=== PATIENT | female | born 1955 | race Caucasian/White ===

== ENCOUNTER 2017-04-03 02:48 | Emergency (ER) | payer MEDICARE, OTHER ==
[2017-04-03] MEDS ORDERED: NORMAL SALINE 1000 ML 1,000 ML IV ONE ×2 (03:50→07:17)
--- NOTE | 2017-04-03 03:55 | ER Document Report ---
ED General - General Chief Complaint: Ankle Pain Stated Complaint: FALL/LEG PAIN Time Seen by Provider: 04/03/17 03:39 Notes: Patient is a 61-year-old female who comes emergency department for chief complaint of right ankle pain, she states that she almost passed out, she got lightheaded and stumbled forward, she states this caused her to fall down steps and she caught her right ankle in between 1 of the rungs. She states that her blood pressure has been running low for the past few weeks, she states that she has seen her primary care provider and they were supposed to refer her to her drug and alcohol counselor but this has not happened yet. Patient states she does have not have any idea why her blood pressures been running low, she does not take any antihypertensive medications, she is on baclofen and oxycodone 15 mg but she states these are not new. She denies chest pain, head injury or headache, back pain, she states she hurts over both of her collarbones. Past medical history of lumbar fusion as the reason for her chronic pain management, CAD with NH but no reported CHF, hyperlipidemia, GERD, TIA. TRAVEL OUTSIDE OF THE [place] IN LAST 30 DAYS: No - Related Data Allergies/Adverse Reactions: Sulfa (Sulfonamide Antibiotics) Allergy (Intermediate, Verified 02/02/11 11:10) N&V Past Medical History - General Information source: Patient - Social History Smoking Status: Never Smoker Frequency of alcohol use: None Drug Abuse: None Lives with: Family Family History: CAD, CVA, DM, Hyperlipidemia, Hypertension, Malignancy, Thyroid Disfunction Patient has suicidal ideation: No Patient has homicidal ideation: No - Past Medical History Cardiac Medical History: Reports: Hx Hypertension - meds X 15 years Denies: Hx Coronary Artery Disease, Hx Heart Attack Pulmonary Medical History: Reports: Hx Bronchitis, Hx COPD, Hx Pneumonia - Sep 2009 Denies: Hx Asthma Neurological Medical History: Denies: Hx Cerebrovascular Accident, Hx Seizures Endocrine Medical History: Reports: Hx Diabetes Mellitus Type 2 Renal/ Medical History: Reports: Hx Kidney Stones. Denies: Hx Peritoneal Dialysis GI Medical History: Reports: Hx Gastroesophageal Reflux Disease, Hx Irritable Bowel, Hx Colonoscopy, Hx Endoscopy Musculoskeltal Medical History: Reports Hx Arthritis - DJD, Reports Hx Muscle Weakness, Reports Hx Musculoskeletal Deformity, Reports Hx Musculoskeletal Trauma Skin Medical History: Denies Hx MRSA Psychiatric Medical History: Reports: Hx Anxiety, Hx Attention Deficit Hyperactivity Disorder, Hx Depression Traumatic Medical History: Reports: Hx Fractures Infectious Medical History: Past Surgical History: Reports: Hx Appendectomy, Hx Breast Surgery, Hx Cholecystectomy, Hx Hysterectomy, Hx Oral Surgery, Hx Tonsillectomy, Hx Tubal Ligation. Denies: Hx Pacemaker - Immunizations Immunizations up to date: No Hx Diphtheria, Pertussis, Tetanus Vaccination: No Review of Systems - Review of Systems Constitutional: No symptoms reported EENT: No symptoms reported Cardiovascular: See HPI Respiratory: No symptoms reported Gastrointestinal: No symptoms reported Genitourinary: No symptoms reported Female Genitourinary: No symptoms reported Musculoskeletal: No symptoms reported Skin: No symptoms reported Hematologic/Lymphatic: No symptoms reported Neurological/Psychological: See HPI Physical Exam - Vital signs Vitals: Temp Pulse Resp BP Pulse Ox 97.5 F 105 H 16 91/59 L 92 04/03/17 02:52 04/03/17 02:52 04/03/17 02:52 04/03/17 02:52 04/03/17 02:52 Interpretation: Normal - General General appearance: Appears well, Alert In distress: None - HEENT Head: Normocephalic, Atraumatic Eyes: Normal Pupils: PERRL - Respiratory Respiratory status: No respiratory distress Chest status: Nontender Breath sounds: Normal Chest palpation: Normal - Cardiovascular Rhythm: Regular. No: Tachycardia Heart sounds: Normal auscultation, S1 appreciated, S2 appreciated Murmur: No - Abdominal Inspection: Normal Distension: No distension Bowel sounds: Normal Tenderness: Nontender. No: Tender, Guarding Organomegaly: No organomegaly - Back Back: Normal, Nontender - Extremities General upper extremity: Normal inspection, Nontender, Normal color, Normal ROM , Normal temperature General lower extremity: Other - Neurological Neuro grossly intact: Yes Cognition: Normal Orientation: AAOx4 Gianna Coma Scale Eye Opening: Spontaneous [place] Coma Scale Verbal: Oriented [place] Coma Scale Motor: Obeys Commands [place] Coma Scale Total: 15 Speech: Normal Motor strength normal: LUE, RUE, LLE, RLE Sensory: Normal - Psychological Associated symptoms: Normal affect, Normal mood - Skin Skin Temperature: Warm Skin Moisture: Dry Skin Color: Normal Course - Re-evaluation Re-evalutation: Patient initially hypotensive, given IV fluids, this normalized. EKG shows prolonged QT interval, no significant change otherwise from previous EKG. Chest x-ray unremarkable, imaging of the leg where she has bruising shows no fractures or dislocations. CBC, chemistry, cardiac enzymes generally unremarkable. Urinalysis shows large amount of leukocyte esterase with some white blood cells , also has squamous epithelials. When I asked patient if she has any urinary symptoms she states that she does have some discomfort with urination. Covered with Keflex. Discussed with Dr. Sharma. 04/03/17 07:15 Spoke with patient's drug and alcohol counselor, Dr. Campoverde. He has seen patient for this same thing within the past 6 months. Patient has had ongoing problems with orthostatic hypotension. He recommends giving patient in the fluids that when she stands she does not have significant hypotension and does not have dizziness , afterwards he will see her in the office workup of this condition which is not new to the patient. No additional recommendations at this time. Discussed with patient, she states understanding and agreement. Being given additional IV fluids, patient introduced to Latisha Myrick PA-C at bedside. - Vital Signs Vital signs: Temp Pulse Resp BP Pulse Ox 97.3 F 94 12 111/45 L 95 04/03/17 03:48 04/03/17 07:09 04/03/17 08:01 04/03/17 08:01 04/03/17 08:01 - Laboratory Result Diagrams: 04/03/17 04:28 04/03/17 04:28 Laboratory results interpreted by me: 04/03/17 04/03/17 04:28 05:12 AST 46 H Alkaline Phosphatase 137 H Ur Leukocyte Esterase LARGE H Discharge - Discharge Clinical Impression: Near syncope, Dysuria Fall Qualifiers: Encounter type: initial encounter Qualified Code(s): W19.XXXA - Unspecified fall, initial encounter Condition: Stable Disposition: HOME, SELF-CARE Additional Instructions: Please call Dr. Campoverde's office for a close follow up. Avoid fast position changes, drink plenty of fluids. No fractures are seen on imaging. Take the keflex antibiotic as directed for urinary tract infection. Return to the ED for any concerning or worsening symptoms. Prescriptions: Cephalexin Monohydrate [Keflex 500 mg Capsule] 500 mg PO BID #10 capsule Referrals: LINK CAMPOVERDE MD [EMERITUS] - Follow up in 3-5 days
--- NOTE | 2017-04-03 04:26 | RADIOLOGY REPORT (SQ) ---
EXAM DESCRIPTION: ANKLE RIGHT COMPLETE COMPLETED DATE/TIME: 04/03/2017 3:20 am REASON FOR STUDY: PAIN . Tripped on stairs, foot got caught in the railing. Laceration distal tibia / fibula. COMPARISON: None. NUMBER OF VIEWS: Three views. TECHNIQUE: AP, lateral, and oblique radiographic images acquired of the right ankle. LIMITATIONS: None. FINDINGS: MINERALIZATION: Normal. BONES: No acute fracture or dislocation. SOFT TISSUES: Soft tissue irregularity at the anterior aspect of the distal tibia/fibula, probably co rresponding to known wound. No radiopaque foreign body. IMPRESSION: No radiographic evidence of acute fracture. Soft tissue irregularity at the anterior as pect of the distal tibia/ fibula, probably corresponding to known wound. TECHNICAL DOCUMENTATION: JOB ID: [id number] OH-[id number] 2010 [employer]- All Rights Reserved
[2017-04-03 04:49] LABS: ABSOLUTE BASOPHILS # (AUTO) 0.1 10^3/uL (0.0-0.2); ABSOLUTE EOSINOPHILS # (AUTO) 0.2 10^3/uL (0.0-0.6); ABSOLUTE LYMPHOCYTES (AUTO) 2.3 10^3/uL (0.5-4.7); ABSOLUTE MONOCYTES (AUTO) 0.8 10^3/uL (0.1-1.4); ABSOLUTE NEUT (AUTO) 6.8 10^3/uL (1.7-8.2); BASOPHILS % (AUTO) 0.7 % (0-2); EOSINOPHILS % (AUTO) 1.6 % (0-6); HEMATOCRIT 37.7 % (36.0-47.0); HEMOGLOBIN 12.4 g/dL (12.0-15.5); HGB HCT DIFFERENCE -0.5; LYMPHOCYTES % (AUTO) 23.2 % (13-45); MEAN CORPUSCULAR HEMOGLOBIN 28.9 pg (27.0-33.4); MEAN CORPUSCULAR HGB CONC 32.9 g/dL (32.0-36.0); MEAN CORPUSCULAR VOLUME 88 fl (80-97); MONOCYTES % (AUTO) 7.6 % (3-13); RED BLOOD COUNT 4.29 10^6/uL (3.72-5.28); SEGMENTED NEUTROPHILS % (AUTO) 66.9 % (42-78); WHITE BLOOD COUNT 10.1 10^3/uL (4.0-10.5)
[2017-04-03 04:55] LABS: ALANINE AMINOTRANSFERASE 46 U/L (9-52); ALBUMIN 4.3 g/dL (3.5-5.0); ALKALINE PHOSPHATASE 137 U/L (38-126); ANION GAP 11 (5-19); ASPARTATE AMINO TRANSFERASE 46 U/L (14-36); BILIRUBIN,DIRECT 0.4 mg/dL (0.0-0.4); BILIRUBIN,TOTAL 0.7 mg/dL (0.2-1.3); BLOOD UREA NITROGEN 17 mg/dL (7-20); CALCIUM 9.2 mg/dL (8.4-10.2); CARBON DIOXIDE 27 mmol/L (22-30); CHLORIDE 101 mmol/L (98-107); CREATINE KINASE 67 U/L (30-135); CREATININE RESULT 0.78 mg/dL (0.52-1.25); GLUCOSE 105 mg/dL (75-110); POTASSIUM 4.2 mmol/L (3.6-5.0); TOTAL PROTEIN 7.5 g/dL (6.3-8.2)
[2017-04-03] MEDS ORDERED: DIPH/PERTUSS(ACELL)/TETANUS VAC/PF 0.5 ML SYR (>=10YO) IM ONE (05:00)
[2017-04-03 05:06] LABS: CREATINE KINASE MB 0.63 ng/mL (<4.55)
[2017-04-03 05:08] LABS: TROPONIN I < 0.012 ng/mL
[2017-04-03 06:01] LABS: APPEARANCE,URINE SLIGHTLY-CLOUDY; BILIRUBIN,URINE NEGATIVE (NEGATIVE); GLUCOSE, URINE NEGATIVE (NEGATIVE); KETONES,URINE NEGATIVE (NEGATIVE); LEUKOCYTE ESTERASE,URINE LARGE (NEGATIVE); NITRITE,URINE NEGATIVE (NEGATIVE); PROTEIN,URINE NEGATIVE (NEGATIVE); URINE SPECIFIC GRAVITY 1.004; UROBILINOGEN,URINE NEGATIVE mg/dL (<2.0)
--- NOTE | 2017-04-03 06:30 | RADIOLOGY REPORT (SQ) ---
EXAM DESCRIPTION: CHEST PA/LAT COMPLETED DATE/TIME: 04/03/2017 6:15 am REASON FOR STUDY: Bilateral clavicle pain (fall), hypotension COMPARISON: Chest x-ray 05/01/2016. EXAM PARAMETERS: NUMBER OF VIEWS: two views TECHNIQUE: Digital Frontal and Lateral radiographic views of the chest acquired. RADIATION DOSE: NA LIMITATIONS: none FINDINGS: LUNGS AND PLEURA: No consolidation, pneumothorax or pleural effusion. MEDIASTINUM AND HILAR STRUCTURES: No masses or contour abnormalities. HEART AND VASCULAR STRUCTURES: Heart normal size. No evidence for failure. BONES: No displaced rib fracture is identified. HARDWARE: None in the chest. IMPRESSION: No acute radiographic finding in the chest. TECHNICAL DOCUMENTATION: JOB ID: [id number] OH-[id number] 2010 [id number]- All Rights Reserved
--- NOTE | 2017-04-03 06:35 | RADIOLOGY REPORT (SQ) ---
EXAM DESCRIPTION: TIBIA FIBULA RIGHT COMPLETED DATE/TIME: 04/03/2017 6:15 am REASON FOR STUDY: fall, pain, bruising . Fall on the stairs, caught in rail. Bruise on the back of tibia/fibula. COMPARISON: Right ankle x-ray 04/03/2017. NUMBER OF VIEWS: Two views. TECHNIQUE: Two radiographic images acquired of the right tibia and fibula to include the knee and an kle in at least one projection. LIMITATIONS: None. FINDINGS: MINERALIZATION: Normal. BONES: No acute fracture or dislocation. SOFT TISSUES: Mild soft tissue stranding at the posterior soft tissues, at the site of patient's brui se. No radiopaque foreign body. IMPRESSION: No radiographic evidence for acute fracture. Mild soft tissue stranding at the posterio r soft tissues, at the site of patient's bruise. TECHNICAL DOCUMENTATION: JOB ID: [id number] OH-64 2010 [employer]- All Rights Reserved
[2017-04-03] MEDS ORDERED: CEPHALEXIN 500 MG CAPSULE PO ONE (07:06)
[2017-04-03 09:43] VITALS: BP 106/90
--- NOTE | 2017-04-03 11:20 | EKG REPORT ---
SEVERITY:- BORDERLINE ECG - SINUS RHYTHM BORDERLINE PROLONGED QT INTERVAL : Confirmed by: Mandy Loza 03-Apr-2017 11:19:16
== END 2017-04-03 09:33 | disposition home or self-care (01) ==
LOC: ER 02:48
DX: R55 Syncope and collapse (principal); R30.0 Dysuria; M25.571 Pain in right ankle and joints of right foot; W19.XXXA Unspecified fall, initial encounter; Z79.899 Other long term (current) drug therapy; I25.10 Atherosclerotic heart disease of native coronary artery without angina pectoris; I25.2 Old myocardial infarction
CPT/HCPCS: 93005; 99284; 96360; 96361; 90471; 36415; 87086; 82553; 82550; 85025; 87088; 80053; 81001; 84484; 87186; 73610; 71020; 73590; 90715; 93010; A9270; J7030

== ENCOUNTER → 2017-04-11 | Outpatient (CLI) | payer MEDICARE, OTHER ==
--- NOTE | 2017-04-12 13:57 | WOMENS IMAGING REPORT ---
EXAM DESCRIPTION: 3D SCREENING MAMMO BILAT COMPLETED DATE/TIME: 04/11/2017 9:29 am REASON FOR STUDY: Z12.31, ROUITINE SCREENING MAMMO COMPARISON: Multiple since 2009 TECHNIQUE: Standard craniocaudal and mediolateral oblique views of each breast recorded using digita l acquisition and breast tomosynthesis. LIMITATIONS: None. FINDINGS: Findings present which are benign by mammographic criteria. No suspicious masses, calcifi cations or architectural distortion. Pertinent benign findings: Post breast reduction bilaterally. Stable subcentimeter intramammary lymp h node left breast and bilateral benign breast parenchymal calcifications. Read with the assistance of CAD. .[facility] - R2 Cenova Version 1.3 .[facility] Imaging - R2 Cenova Version 1.3 .[facility] Imaging - R2 Cenova Version 2.4 .[facility] - R2 Cenova Version 2.4 .[facility] - R2 Computer Aided Drafter Version 9.2 Benign mammographic findings may include one or more of the following: Smooth masses, popcorn/rim/co arse calcifications, asymmetries, post-procedure changes, and lesions with long-standing stability. IMPRESSION: BENIGN MAMMOGRAPHIC FINDINGS. BIRADS 2 BREAST DENSITY: b. There are scattered areas of fibroglandular density. BIRAD: 2 BENIGN FINDING(S) RECOMMENDATION: RECOMMENDATION: ROUTINE SCREENING COMMENT: The patient has been notified of the results by letter per SA requirements. Additional no tification policies are in place for contacting patient with suspicious or incomplete findings. Quality ID #[id number]: The [employer] recommends an annual screening mammogram for women aged 40 years or over. This facility utilizes a reminder system to ensure that all patients receive reminder letters, and/or direct phone calls for appointments. This includes reminders for routine scr eening mammograms, diagnostic mammograms, or other Breast Imaging Interventions when appropriate. Th is patient will be placed in the appropriate reminder system. The [employer] (ACR) has developed recommendations for screening MRI of the breast s in certain patient populations, to be used in conjunction with mammography. Breast MRI surveillanc e may be appropriate for women with more than 20% lifetime risk of developing breast cancer as deter mined by genetic testing, significant family history of the disease, or history of mantle radiation f or Hodgkins Disease. ACR Practice Guidelines 2008. DBT Technology DBT is a type of tomographic mammography. With conventional mammography, overlapping breast tissue ma y make lesions difficult to detect, even with good compression. DBT uses an x-ray tube that rotates a round the breast, taking images at different angles. These images are then combined to create thin sl ices of the breast that the radiologist can view as a 3D reconstruction. The [employer] unit can perform full-field digital mammograms (2D imaging); or DBT (3D imaging); or both, in a combination mode that quickly performs both the mammogram and the tomosynthesis scan while the breast is still compressed. PQRS 6045F: Fluoroscopic imaging is not utilized for breast tomosynthesis. TECHNICAL DOCUMENTATION: FINDING NUMBER: (1) ASSESSMENT: (1) JOB ID: [id number] [employer]- All Rights Reserved
== END ==
LOC: WI 08:25
PROVIDERS: ATTEND Nurse Practitioner
DX: Z12.31 Encounter for screening mammogram for malignant neoplasm of breast (principal)
CPT/HCPCS: 77063; G0202; 77067

== ENCOUNTER 2017-11-26 14:17 | Inpatient (IN) | payer MEDICARE, OTHER ==
--- NOTE | 2017-11-26 14:43 | ER Document Report ---
ED Medical Screen (RME) - General Chief Complaint: Fall Stated Complaint: BREATHING ISSUES Time Seen by Provider: 11/26/17 14:40 Mode of Arrival: Ambulatory Information source: Patient TRAVEL OUTSIDE OF THE [place] IN LAST 30 DAYS: No - HPI Patient complains to provider of: fall Onset: Yesterday - pt states she fell and injured R rib area -- now is having trouble breathing - Related Data Allergies/Adverse Reactions: Sulfa (Sulfonamide Antibiotics) Allergy (Intermediate, Verified 11/26/17 14:18) N&V Past Medical History - Past Medical History Cardiac Medical History: Reports: Hx Hypertension - meds X 15 years Denies: Hx Coronary Artery Disease, Hx Heart Attack Pulmonary Medical History: Reports: Hx Bronchitis, Hx COPD, Hx Pneumonia - Sep 2009 Denies: Hx Asthma Neurological Medical History: Denies: Hx Cerebrovascular Accident, Hx Seizures Endocrine Medical History: Reports: Hx Diabetes Mellitus Type 2 Renal/ Medical History: Reports: Hx Kidney Stones. Denies: Hx Peritoneal Dialysis GI Medical History: Reports: Hx Gastroesophageal Reflux Disease, Hx Irritable Bowel, Hx Colonoscopy, Hx Endoscopy Musculoskeltal Medical History: Reports Hx Arthritis - DJD, Reports Hx Muscle Weakness, Reports Hx Musculoskeletal Deformity, Reports Hx Musculoskeletal Trauma Skin Medical History: Denies Hx MRSA Psychiatric Medical History: Reports: Hx Anxiety, Hx Attention Deficit Hyperactivity Disorder, Hx Depression Traumatic Medical History: Reports: Hx Fractures Infectious Medical History: Past Surgical History: Reports: Hx Appendectomy, Hx Breast Surgery, Hx Cholecystectomy, Hx Hysterectomy, Hx Oral Surgery, Hx Tonsillectomy, Hx Tubal Ligation. Denies: Hx Pacemaker - Immunizations Immunizations up to date: No Hx Diphtheria, Pertussis, Tetanus Vaccination: No Physical Exam - Vital signs Vitals: Temp Pulse Resp BP Pulse Ox 98.1 F 119 H 18 109/51 L 95 11/26/17 14:34 11/26/17 14:34 11/26/17 14:34 11/26/17 14:34 11/26/17 14:34 Course - Vital Signs Vital signs: Temp Pulse Resp BP Pulse Ox 98.1 F 119 H 18 109/51 L 95 11/26/17 14:34 11/26/17 14:34 11/26/17 14:34 11/26/17 14:34 11/26/17 14:34
[2017-11-26 15:36] LABS: ABSOLUTE BASOPHILS # (AUTO) 0.2 10^3/uL (0.0-0.2); ABSOLUTE EOSINOPHILS # (AUTO) 0.2 10^3/uL (0.0-0.6); ABSOLUTE LYMPHOCYTES (AUTO) 3.3 10^3/uL (0.5-4.7); ABSOLUTE MONOCYTES (AUTO) 0.9 10^3/uL (0.1-1.4); ABSOLUTE NEUT (AUTO) 14.1 10^3/uL (1.7-8.2); EOSINOPHILS % (AUTO) 1.1 % (0-6); HEMATOCRIT 40.7 % (36.0-47.0); HEMOGLOBIN 13.9 g/dL (12.0-15.5); LYMPHOCYTES % (AUTO) 17.7 % (13-45); MEAN CORPUSCULAR HEMOGLOBIN 29.9 pg (27.0-33.4); MEAN CORPUSCULAR HGB CONC 34.1 g/dL (32.0-36.0); MEAN CORPUSCULAR VOLUME 88 fl (80-97); MONOCYTES % (AUTO) 4.8 % (3-13); RED BLOOD COUNT 4.65 10^6/uL (3.72-5.28); RED CELL DISTRIBUTION WIDTH 12.9 % (11.5-14.0); SEGMENTED NEUTROPHILS % (AUTO) 75.4 % (42-78); TOTAL CELLS COUNTED % (AUTO) 100 %; WHITE BLOOD COUNT 18.7 10^3/uL (4.0-10.5)
[2017-11-26 15:40] LABS: ALANINE AMINOTRANSFERASE 86 U/L (9-52); ALBUMIN 4.5 g/dL (3.5-5.0); ALKALINE PHOSPHATASE 199 U/L (38-126); ANION GAP 11 (5-19); ASPARTATE AMINO TRANSFERASE 60 U/L (14-36); BILIRUBIN,DIRECT 0.1 mg/dL (0.0-0.4); BILIRUBIN,TOTAL 0.5 mg/dL (0.2-1.3); BLOOD UREA NITROGEN 16 mg/dL (7-20); CALCIUM 9.5 mg/dL (8.4-10.2); CARBON DIOXIDE 31 mmol/L (22-30); CHLORIDE 98 mmol/L (98-107); GLUCOSE 96 mg/dL (75-110); POTASSIUM 4.2 mmol/L (3.6-5.0); SODIUM 139.5 mmol/L (137-145)
[2017-11-26 15:41] LABS: APPEARANCE,URINE TURBID; BILIRUBIN,URINE NEGATIVE (NEGATIVE); COLOR,URINE AMBER; GLUCOSE, URINE NEGATIVE (NEGATIVE); KETONES,URINE NEGATIVE (NEGATIVE); LEUKOCYTE ESTERASE,URINE LARGE (NEGATIVE); NITRITE,URINE POSITIVE (NEGATIVE); PROTEIN,URINE 100 mg/dL (NEGATIVE); URINE SPECIFIC GRAVITY 1.024
[2017-11-26 16:00] LABS: PLATELET COUNT 284 10^3/uL (150-450)
--- NOTE | 2017-11-26 16:31 | RADIOLOGY REPORT (SQ) ---
EXAM DESCRIPTION: CHEST PA/LAT COMPLETED DATE/TIME: 11/26/2017 4:20 pm REASON FOR STUDY: fall COMPARISON: 04/03/2017 two-view chest EXAM PARAMETERS: NUMBER OF VIEWS: two views TECHNIQUE: Digital Frontal and Lateral radiographic views of the chest acquired. RADIATION DOSE: NA LIMITATIONS: none FINDINGS: LUNGS AND PLEURA: No opacities, masses or pneumothorax. No pleural effusion. MEDIASTINUM AND HILAR STRUCTURES: No masses or contour abnormalities. HEART AND VASCULAR STRUCTURES: Heart normal size. No evidence for failure. BONES: No acute findings. In particular, no acute displaced right lateral rib fractures are seen HARDWARE: None in the chest. OTHER: No other significant finding. IMPRESSION: NO SIGNIFICANT RADIOGRAPHIC FINDING IN THE CHEST. TECHNICAL DOCUMENTATION: JOB ID: [id number] [employer]- All Rights Reserved
[2017-11-26] MEDS ORDERED: NITROFURANTOIN MONOHYD/M-CRYST 100 MG CAPSULE PO ONE (17:25)
[2017-11-26] MEDS ORDERED: IBUPROFEN 800 MG TABLET PO ONE (17:35)
[2017-11-26] MEDS ORDERED: NORMAL SALINE 1000 ML 1,000 ML IV ONE (18:15)
[2017-11-26] MEDS ORDERED: CEFTRIAXONE INJ 1000 MG VIAL IV ONE (18:15)
--- NOTE | 2017-11-26 19:01 | ER Document Report ---
ED General - General Chief Complaint: Fall Stated Complaint: BREATHING ISSUES Time Seen by Provider: 11/26/17 14:40 Mode of Arrival: Ambulatory Notes: 62-year-old lady smoker presents with right rib pain under her breast, after a fall where she fell and hit her chest. The fall was actually a syncopal episode because she got dizzy and lost consciousness. This occurred suddenly and is now resolved. When asked why she thinks she fainted she thinks she said she her blood pressure is low. She has right pleuritic chest pain worse with deep breathing. No cough or shortness of breath. TRAVEL OUTSIDE OF THE [place] IN LAST 30 DAYS: No - Related Data Allergies/Adverse Reactions: Sulfa (Sulfonamide Antibiotics) Allergy (Intermediate, Verified 11/26/17 14:18) N&V Past Medical History - General Information source: Patient - Social History Smoking Status: Current Every Day Smoker Chew tobacco use (# tins/day): No Smoking Education Provided: Yes - The patient ED visit today was directly related to their abuse of tobacco. Frequency of alcohol use: None Drug Abuse: None Family History: CAD, CVA, DM, Hyperlipidemia, Hypertension, Malignancy, Thyroid Disfunction Patient has suicidal ideation: No Patient has homicidal ideation: No - Past Medical History Cardiac Medical History: Reports: Hx Hypertension - meds X 15 years Denies: Hx Coronary Artery Disease, Hx Heart Attack Pulmonary Medical History: Reports: Hx Bronchitis, Hx COPD, Hx Pneumonia - Sep 2009 Denies: Hx Asthma Neurological Medical History: Denies: Hx Cerebrovascular Accident, Hx Seizures Endocrine Medical History: Reports: Hx Diabetes Mellitus Type 2 Renal/ Medical History: Reports: Hx Kidney Stones. Denies: Hx Peritoneal Dialysis GI Medical History: Reports: Hx Gastroesophageal Reflux Disease, Hx Irritable Bowel, Hx Colonoscopy, Hx Endoscopy Musculoskeltal Medical History: Reports Hx Arthritis - DJD, Reports Hx Muscle Weakness, Reports Hx Musculoskeletal Deformity, Reports Hx Musculoskeletal Trauma Skin Medical History: Denies Hx MRSA Psychiatric Medical History: Reports: Hx Anxiety, Hx Attention Deficit Hyperactivity Disorder, Hx Depression Traumatic Medical History: Reports: Hx Fractures Infectious Medical History: Past Surgical History: Reports: Hx Appendectomy, Hx Breast Surgery, Hx Cholecystectomy, Hx Hysterectomy, Hx Oral Surgery, Hx Tonsillectomy, Hx Tubal Ligation. Denies: Hx Pacemaker - Immunizations Immunizations up to date: No Hx Diphtheria, Pertussis, Tetanus Vaccination: No Review of Systems - Review of Systems Notes: REVIEW OF SYSTEMS GEN: Denies fever, chills, weight loss ENT: Denies sore throat, nasal discharge, ear pain EYES: Denies blurry vision, eye pain, discharge CV: Pleuritic chest pain, no edema RESP: D cough shortness of breath right pleuritic chest pain GI: Denies abdominal pain, nausea, vomiting, diarrhea MSK: Denies joint pain/swelling, edema, SKIN: Denies rash, skin lesions LYMPH: Denies swollen glands/lymph nodes NEURO: Denies headache, focal weakness or numbness, dizziness PSYCH: Denies depression, suicidal or homicidal ideation PHYSICAL EXAMINATION General: No acute distress, well-nourished Head: Atraumatic, normocephalic ENT: Mouth normal, oropharynx moist, no exudates or tonsillar enlargement Eyes: Conjunctiva normal, pupils equal, lids normal Neck: No JVD, supple, no guarding CVS: Normal rate, regular rhythm, no murmurs Resp: No resp distress, equal and normal breath sounds bilaterally. Mild chest wall tenderness in the right axillary area without crepitus or deformity. GI: Nondistended, soft, pubic tenderness to palpation, no rebound or guarding Ext: No deformities, no edema, normal range of motion in upper and lower ext Back: No CVA or midline TTP Skin: No rash, warm Lymphatic: No lymphadeopathy noted Neuro: Awake, alert. Face symmetric. GCS 15. Physical Exam - Vital signs Vitals: Temp Pulse Resp BP Pulse Ox 98.1 F 119 H 18 109/51 L 95 11/26/17 14:34 11/26/17 14:34 11/26/17 14:34 11/26/17 14:34 11/26/17 14:34 Course - Re-evaluation Re-evalutation: 11/26/17 19:00 Patient presents with pleuritic right chest pain after a fall. There is no external sign of trauma. Chronic smoker. Lung sounds are good. Doubt displaced rib fracture bone contusion or pneumothorax. Chest x-ray is done and is normal. She seems to have had a syncopal episode and her pressure is borderline here. She has some superior tenderness. Urinalysis shows infection, white count is elevated. This is likely a case of mild urosepsis versus urinary tract infection. She was room without IV. IV was inserted, Rocephin and cultures and lactate obtained. IV fluids given. Will reassess. 11/26/17 19:40 Reassessed. Blood pressure 90 1:04 liter. Ordering second liter. Rocephin has been given and cultures were obtained. Lactic is 1. Mental status is intact. No evidence of traumatic injury on exam or radiology. Spoke with Dr. benoitment will admit to IMCU. - Vital Signs Vital signs: Temp Pulse Resp BP Pulse Ox 98.1 F 119 H 15 92/45 L 92 11/26/17 14:34 11/26/17 14:34 11/26/17 19:23 11/26/17 19:23 11/26/17 19:23 - Laboratory Result Diagrams: 11/26/17 15:00 11/26/17 15:00 Laboratory results interpreted by me: 11/26/17 11/26/17 11/26/17 15:00 15:00 15:00 WBC 18.7 H Absolute Neutrophils 14.1 H Carbon Dioxide 31 H AST 60 H ALT 86 H Alkaline Phosphatase 199 H Urine Protein 100 H Urine Blood SMALL H Urine Nitrite POSITIVE H Urine Urobilinogen 4.0 H Ur Leukocyte Esterase LARGE H - Diagnostic Test Radiology reviewed: Image reviewed, Reports reviewed Critical Care Note - Critical Care Note Total time excluding time spent on procedures (mins): 32 - The above patient is critically ill. Not including procedures, but including direct re-evaluations, speaking with patient and/or consultants, interpreting results, and documenting , I spent the total amount of minute listed listed above on critical care time Discharge - Discharge Clinical Impression: Pyelonephritis Sepsis Qualifiers: Sepsis type: sepsis due to unspecified organism Qualified Code(s): A41.9 - Sepsis, unspecified organism Condition: Critical Disposition: ADMITTED INPATIENT Admitting Provider: Hospitalist Unit Admitted: [facility] Referrals: ARMANI ENNIS NP [Primary Care Provider] - Follow up as needed
[2017-11-26] MEDS ORDERED: FENTANYL CITRATE INJ/PF 100 MCG/2 ML AMPUL IV ONE (19:36)
[2017-11-26] MEDS ORDERED: NORMAL SALINE 1000 ML 1,000 ML IV PRN ×2 (19:46→22:07)
[2017-11-26] MEDS ORDERED: ONDANSETRON HCL INJ/PF 4 MG/2 ML SDV IV PRN (19:46)
[2017-11-26] MEDS ORDERED: ACETAMINOPHEN 325 MG TABLET PO PRN (19:46)
[2017-11-27] MEDS ORDERED: NORMAL SALINE 1000 ML 1,000 ML IV PRN (00:33)
--- NOTE | 2017-11-27 01:03 | PDOC H&P ---
History of Present Illness Admission Date/PCP: 11/26/17 19:52 ARMANI ENNIS NP Patient complains of: Almost passing out, diarrhea and foul-smelling urine History of Present Illness: AIMEE BURDEN is a 62 year old female with a history of hypotension, hype hyperlipidemia, COPD, GERD, CAD with a recent diagnosis of Parkinson's disease. Patient presented with a complaint of falling and hitting the right side of her chest. Is uncertain if patient was presyncopal or had a actual syncopal attack. Patient gives a history of going to see her doctor last week complaining of her urine smelling like onions however she was told everything was okay. Patient states that she got up to go to the bathroom today and she does not remember what happened. She states her was trying to put her in the shower and she felt as if she was going to pass out but she did not. Patient also reported having diarrhea for days. Patient states she has been having problems with low blood pressures and her antihypertensives has been discontinued for the last several months.. Patient also states that she was recently diagnosed with Parkinson's disease. The ED she was found to be tachycardic and hypotensive for which she was given a bolus. Her UA was concerning for UTI for which she was given ceftriaxone. Hospitalist was called to admit patient for sepsis due to UTI. Past Medical History Cardiac Medical History: Reports: Hypertension - meds X 15 years Denies: Coronary Artery Disease, Myocardial Infarction Pulmonary Medical History: Reports: Bronchitis, Chronic Obstructive Pulmonary Disease (COPD), Pneumonia - Sep 2009 Denies: Asthma Neurological Medical History: Denies: Seizures Neurological History Note: Parkinson's disease Endocrine Medical History: Reports: Diabetes Mellitus Type 2 GI Medical History: Reports: Gastroesophageal Reflux Disease Musculoskeltal Medical History: Reports: Arthritis - DJD Psychiatric Medical History: Reports: Attention Deficit Hyperactivity Disorder, Depression Hematology: Reports: Anemia - Hx of with pregnancies Past Surgical History Past Surgical History: Reports: Appendectomy, Cholecystectomy, Hysterectomy, Tonsillectomy, Tubal Ligation Denies: Pacemaker Social History Information Source: Patient Smoking Status: Former Smoker Hx Recreational Drug Use: No - Advance Directive Resuscitation Status: Full Code Family History Family History: CAD, CVA, DM, Hyperlipidemia, Hypertension, Malignancy, Thyroid Disfunction Parental Family History Reviewed: No Children Family History Reviewed: No Sibling(s) Family History Reviewed.: No Medication/Allergy Allergies/Adverse Reactions: Sulfa (Sulfonamide Antibiotics) Allergy (Intermediate, Verified 11/26/17 14:18) N&V Review of Systems Constitutional: ABSENT: chills, fever(s), headache(s), weight gain, weight loss Eyes: ABSENT: visual disturbances Ears: ABSENT: hearing changes Cardiovascular: ABSENT: chest pain, dyspnea on exertion, edema, orthropnea, palpitations Respiratory: ABSENT: cough, hemoptysis Gastrointestinal: PRESENT: diarrhea. ABSENT: abdominal pain, constipation, hematemesis, hematochezia, nausea, vomiting Genitourinary: PRESENT: other - Foul-smelling urine. ABSENT: dysuria, hematuria Musculoskeletal: ABSENT: joint swelling Integumentary: ABSENT: rash, wounds Neurological: PRESENT: syncope. ABSENT: abnormal gait, abnormal speech, confusion, dizziness, focal weakness Psychiatric: ABSENT: anxiety, depression, homidical ideation, suicidal ideation Endocrine: ABSENT: cold intolerance, heat intolerance, polydipsia, polyuria Hematologic/Lymphatic: ABSENT: easy bleeding, easy bruising Physical Exam Vital Signs: Temp Pulse Resp BP Pulse Ox 98.1 F 119 H 15 92/45 L 92 11/26/17 14:34 11/26/17 14:34 11/26/17 19:23 11/26/17 19:23 11/26/17 19:23 General appearance: PRESENT: no acute distress, well-developed, well-nourished Head exam: PRESENT: atraumatic, normocephalic Eye exam: PRESENT: PERRLA. ABSENT: scleral icterus Ear exam: PRESENT: normal external ear exam Mouth exam: PRESENT: moist, tongue midline Neck exam: ABSENT: carotid bruit, JVD, lymphadenopathy, thyromegaly Respiratory exam: PRESENT: clear to auscultation kelsie. ABSENT: rales, rhonchi, wheezes Cardiovascular exam: PRESENT: RRR. ABSENT: diastolic murmur, rubs, systolic murmur Pulses: PRESENT: normal dorsalis pedis pul Vascular exam: PRESENT: normal capillary refill GI/Abdominal exam: PRESENT: normal bowel sounds, soft. ABSENT: distended, guarding, mass, organolmegaly, rebound, tenderness Rectal exam: PRESENT: deferred Extremities exam: PRESENT: full ROM. ABSENT: calf tenderness, clubbing, pedal edema Neurological exam: PRESENT: alert, awake, oriented to person, oriented to place , oriented to time, oriented to situation, CN II-XII grossly intact, other - Slow to respond but responds appropriately. ABSENT: motor sensory deficit Psychiatric exam: PRESENT: flat affect. ABSENT: homicidal ideation, suicidal ideation Skin exam: PRESENT: dry, intact, warm. ABSENT: cyanosis, rash Results Laboratory Results: 11/26/17 11/26/17 11/26/17 15:00 15:00 15:00 WBC 18.7 H RBC 4.65 Hgb 13.9 Hct 40.7 MCV 88 MCH 29.9 MCHC 34.1 RDW 12.9 Plt Count 284 Seg Neutrophils % 75.4 Lymphocytes % 17.7 Monocytes % 4.8 Eosinophils % 1.1 Basophils % 1.0 Absolute Neutrophils 14.1 H Absolute Lymphocytes 3.3 Absolute Monocytes 0.9 Absolute Eosinophils 0.2 Absolute Basophils 0.2 D-Dimer 0.49 Sodium 139.5 Potassium 4.2 Chloride 98 Carbon Dioxide 31 H Anion Gap 11 BUN 16 Creatinine 0.66 Est GFR ( Amer) > 60 Est GFR (Non-Af Amer) > 60 Glucose 96 Lactic Acid Calcium 9.5 Total Bilirubin 0.5 Direct Bilirubin 0.1 AST 60 H ALT 86 H Alkaline Phosphatase 199 H Total Protein 7.0 Albumin 4.5 Urine Color Urine Appearance Urine pH Ur Specific [place] Urine Protein Urine Glucose (UA) Urine Ketones Urine Blood Urine Nitrite Urine Bilirubin Urine Urobilinogen Ur Leukocyte Esterase Urine WBC (Auto) Urine RBC (Auto) Urine WBC Clumps Squamous Epi Cells Auto U Non-Squamous Epis Auto Urine Mucus (Auto) Urine Ascorbic Acid 11/26/17 11/26/17 15:00 18:40 WBC RBC Hgb Hct MCV MCH MCHC RDW Plt Count Seg Neutrophils % Lymphocytes % Monocytes % Eosinophils % Basophils % Absolute Neutrophils Absolute Lymphocytes Absolute Monocytes Absolute Eosinophils Absolute Basophils D-Dimer Sodium Potassium Chloride Carbon Dioxide Anion Gap BUN Creatinine Est GFR ( Amer) Est GFR (Non-Af Amer) Glucose Lactic Acid 1.0 Calcium Total Bilirubin Direct Bilirubin AST ALT Alkaline Phosphatase Total Protein Albumin Urine Color GI Urine Appearance TURBID Urine pH 5.0 Ur Specific [place] 1.024 Urine Protein 100 H Urine Glucose (UA) NEGATIVE Urine Ketones NEGATIVE Urine Blood SMALL H Urine Nitrite POSITIVE H Urine Bilirubin NEGATIVE Urine Urobilinogen 4.0 H Ur Leukocyte Esterase LARGE H Urine WBC (Auto) >182 Urine RBC (Auto) 14 Urine WBC Clumps MANY Squamous Epi Cells Auto 8 U Non-Squamous Epis Auto 4 Urine Mucus (Auto) MOD Urine Ascorbic Acid NEGATIVE Impressions: Chest X-Ray 11/26/17 14:41 IMPRESSION: NO SIGNIFICANT RADIOGRAPHIC FINDING IN THE CHEST. Assessment & Plan - Diagnosis (1) Sepsis Qualifiers: Sepsis type: sepsis due to unspecified organism Qualified Code(s): A41.9 - Sepsis, unspecified organism Is this a current diagnosis for this admission?: Yes Plan: Patient presented with cardia at 119, hypotension of 94/56 leukocytosis of 18, 000. Patient noted to have a possible UTI based on her UA which was positive for nitrites and leukocyte esterase. Patient given fluid boluses. Patient on maintenance fluids at 1 25 cc an hour. Patient started on ceftriaxone. Urine blood cultures are pending. (2) UTI (urinary tract infection) Qualifiers: Encounter type: initial encounter Is this a current diagnosis for this admission?: Yes Plan: Patient UA consistent for UTI. Patient currently on ceftriaxone. (3) Syncope due to orthostatic hypotension Is this a current diagnosis for this admission?: Yes Plan: Patient had syncopal episodes most likely due to orthostatic hypotension. Patient states she was standing when she had these episodes.. Patient recent diagnosis of Parkinson disease she is at risk for orthostatic hypotension due to autonomic dysfunction. This may have been worsened by her recent bout of diarrhea. Will aggressively hydrate patient. Will place patient on her normal diet for which she receives sodium. Will check orthostatic blood pressures daily. Will place patient on telemetry. Patient is on fall precautions and PT OT consulted. (4) Hypotension Is this a current diagnosis for this admission?: Yes Plan: Patient reports having problems with hypotension therefore her antihypertensives have been discontinued by her PCP. However patient may have worsening hypotension due to sepsis. Will continue aggressive hydration following fluid boluses. Patient is currently on normal saline at 1 25 cc an hour. (5) Diarrhea Qualifiers: Diarrhea type: unspecified type Qualified Code(s): R19.7 - Diarrhea, unspecified Is this a current diagnosis for this admission?: Yes Plan: Reports diarrhea. Will check stool studies and C. difficile. (6) Parkinson disease Is this a current diagnosis for this admission?: Yes Plan: Continue supportive care. - Time Time Spent: 30 to 50 Minutes Anticipated discharge: Home with Homehealth - Inpatient Certification Medical Necessity: Need For IV Fluids, Need for IV Antibiotics
[2017-11-27] MEDS: LANSOPRAZOLE 30 MG TAB.RAP.DR PO SCH (05:11)
[2017-11-27 05:32] LABS: ALANINE AMINOTRANSFERASE 60 U/L (9-52); ALBUMIN 2.8 g/dL (3.5-5.0); ALKALINE PHOSPHATASE 124 U/L (38-126); ASPARTATE AMINO TRANSFERASE 39 U/L (14-36); BILIRUBIN,DIRECT 0.3 mg/dL (0.0-0.4); BILIRUBIN,TOTAL 0.3 mg/dL (0.2-1.3)
[2017-11-27 07:05] LABS: ABSOLUTE EOSINOPHILS # (AUTO) 0.1 10^3/uL (0.0-0.6); ABSOLUTE LYMPHOCYTES (AUTO) 1.7 10^3/uL (0.5-4.7); ABSOLUTE MONOCYTES (AUTO) 0.5 10^3/uL (0.1-1.4); ABSOLUTE NEUT (AUTO) 4.7 10^3/uL (1.7-8.2); BASOPHILS % (AUTO) 0.4 % (0-2); EOSINOPHILS % (AUTO) 1.9 % (0-6); HEMATOCRIT 31.8 % (36.0-47.0); MEAN CORPUSCULAR HEMOGLOBIN 30.3 pg (27.0-33.4); MEAN CORPUSCULAR HGB CONC 34.7 g/dL (32.0-36.0); MEAN CORPUSCULAR VOLUME 87 fl (80-97); MONOCYTES % (AUTO) 7.6 % (3-13); PLATELET COUNT 197 10^3/uL (150-450); RED BLOOD COUNT 3.65 10^6/uL (3.72-5.28); RED CELL DISTRIBUTION WIDTH 12.8 % (11.5-14.0); SEGMENTED NEUTROPHILS % (AUTO) 66.1 % (42-78); TOTAL CELLS COUNTED % (AUTO) 100 %; WHITE BLOOD COUNT 7.1 10^3/uL (4.0-10.5)
[2017-11-27 07:20] LABS: HEMOGLOBIN 11.1 g/dL (12.0-15.5)
[2017-11-27] MEDS ORDERED: CEFTRIAXONE 1 GM/D5W RTU 1 GM/50 ML RTUPB IV SCH (10:00)
[2017-11-27] MEDS ORDERED: LORAZEPAM 1 MG TABLET PO PRN (12:00)
[2017-11-27] MEDS ORDERED: OXYCODONE HCL SR 10 MG TABLET PO SCH (12:00)
[2017-11-27] MEDS ORDERED: RINGERS SOLUTION,LACTATED 500 ML IV PRN (12:00)
[2017-11-27] MEDS ORDERED: OXYCODONE HCL IR 5 MG TABLET PO ONE (13:00)
[2017-11-27] MEDS ORDERED: (PENDING PHARMACY ID) (Trazodone Hcl [Desyrel] 100 MG) PO PRN (13:19)
[2017-11-27] MEDS ORDERED: (PENDING PHARMACY ID) (Ondansetron Hcl [Zofran 4 Mg Tablet] 4 MG) PO PRN (13:19)
--- NOTE | 2017-11-27 13:19 | PDOC PROGRESS REPORT ---
Subjective Progress Note for:: 11/27/17 Subjective:: Pt is breathing fine, no new SOB or cough, no fever or chills, some mild dysuria , no blood in urine. She reports right breast and chest wall pain after fall at home. No other acute pain. Her vision changes. No angling, the patient has some chronic numbness in her bilateral feet. No abdominal pain that she has had diarrhea for several weeks to months. No blood in her stool as far she can tell. Remainder of review of systems performed and is negative. I have reviewed her labs and pertinent diagnostic studies. Reason For Visit: SEPSIS/UTI Physical Exam Vital Signs: Temp Pulse Resp BP Pulse Ox 98.1 F 82 16 92/31 L 94 11/27/17 07:57 11/27/17 07:57 11/27/17 07:57 11/27/17 07:57 11/27/17 07:57 Intake & Output 11/26/17 11/27/17 11/28/17 06:59 06:59 06:59 Intake Total 625 Balance 625 Weight 66.6 kg General appearance: PRESENT: no acute distress, cooperative, disheveled Eye exam: PRESENT: conjunctiva pink, nystagmus Ear exam: PRESENT: normal external ear exam Mouth exam: PRESENT: dry mucosa Neck exam: ABSENT: lymphadenopathy Respiratory exam: PRESENT: decreased breath sounds, unlabored, wheezes. ABSENT : rales Cardiovascular exam: PRESENT: RRR. ABSENT: systolic murmur Pulses: PRESENT: normal carotid pulses GI/Abdominal exam: PRESENT: normal bowel sounds, soft. ABSENT: distended, guarding, tenderness Rectal exam: PRESENT: deferred Extremities exam: PRESENT: pedal edema - Trace Musculoskeletal exam: PRESENT: other - Tenderness to palpation over the right lateral chest, no ecchymoses seen. Neurological exam: PRESENT: alert, awake, oriented to person, oriented to place , oriented to situation, CN II-XII grossly intact Psychiatric exam: PRESENT: appropriate affect. ABSENT: agitated, anxious Skin exam: PRESENT: dry, intact, warm Results Laboratory Results: 11/27/17 06:31 11/27/17 11/27/17 11/27/17 04:22 04:22 06:31 WBC Cancelled 7.1 RBC Cancelled 3.65 L Hgb Cancelled 11.1 L D Hct Cancelled 31.8 L MCV Cancelled 87 MCH Cancelled 30.3 MCHC Cancelled 34.7 RDW Cancelled 12.8 Plt Count Cancelled 197 Seg Neutrophils % Cancelled 66.1 Lymphocytes % Cancelled 24.0 Monocytes % Cancelled 7.6 Eosinophils % Cancelled 1.9 Basophils % Cancelled 0.4 Absolute Neutrophils Cancelled 4.7 Absolute Lymphocytes Cancelled 1.7 Absolute Monocytes Cancelled 0.5 Absolute Eosinophils Cancelled 0.1 Absolute Basophils Cancelled 0.0 Total Bilirubin 0.3 AST 39 H ALT 60 H Alkaline Phosphatase 124 Total Protein 5.0 L Albumin 2.8 L Impressions: Chest X-Ray 11/26/17 14:41 IMPRESSION: NO SIGNIFICANT RADIOGRAPHIC FINDING IN THE CHEST. Assessment & Plan - Diagnosis (1) Diarrhea Qualifiers: Diarrhea type: unspecified type Qualified Code(s): R19.7 - Diarrhea, unspecified Is this a current diagnosis for this admission?: Yes Plan: Patient does not remember for how long she has had diarrhea, weeks to months. Just to be safe for checking C. difficile and stool cultures. If this is a chronic diarrhea will have to refer her back to her primary care for this. (2) Hypotension Is this a current diagnosis for this admission?: Yes Plan: Blood pressure is improving. This is likely due to her urinary tract infection with evidence of sepsis. I have given her an LR 500 mL bolus and will continue her normal saline. We will watch blood pressures closely and continue to fluid bolus as needed while we are treating the underlying condition, urinary tract infection. (3) Parkinson disease Is this a current diagnosis for this admission?: Yes Plan: Patient states this is a new diagnosis. She is not on any medications at this time as far as we can tell. We will continue supportive care and refer her back to her doctor for treatment. (4) Sepsis Qualifiers: Sepsis type: sepsis due to unspecified organism Qualified Code(s): A41.9 - Sepsis, unspecified organism Is this a current diagnosis for this admission?: Yes Plan: Parameters improving. Heart rate is back to normal. We will continue to work on blood pressure with antibiotics and IV fluids. She has a urinary tract infection, urine culture and blood cultures are pending. Lactic acid is 1.0. She is mentating normally. (5) Syncope due to orthostatic hypotension Is this a current diagnosis for this admission?: Yes Plan: No further episodes of syncope. She was hypotensive in the ER and this was likely a syncope due to orthostatic hypotension. As soon as her blood pressure normalizes and she is feeling better will get her up and walk her safely to see if she is symptomatic. There are no focal neurologic findings. (6) UTI (urinary tract infection) Qualifiers: Encounter type: initial encounter Is this a current diagnosis for this admission?: Yes Plan: Gram-negative rods growing in culture. We will continue ceftriaxone. - Time Time Spent with patient: 25-34 minutes Within: within 48 hours - Inpatient Certification Based on my medical assessment, after consideration of the patient's comorbidities, presenting symptoms, or acuity I expect that the services needed warrant INPATIENT care.: Yes I certify that my determination is in accordance with my understanding of Medicare's requirements for reasonable and necessary INPATIENT services [42 CFR 412.3e].: Yes Medical Necessity: Need Close Monitoring Due to Risk of Patient Decompensation, Need For IV Fluids, Need for IV Antibiotics
[2017-11-27] MEDS ORDERED: ONDANSETRON 4 MG TAB.RAPDIS PO PRN (14:11)
[2017-11-27] MEDS ORDERED: TRAZODONE HCL 50 MG TABLET PO PRN (15:08)
[2017-11-27] MEDS ORDERED: MEGESTROL ACETATE SUSP 400 MG/10 ML UDCUP PO ONE ×2 (17:00→18:00)
[2017-11-27] MEDS: OXYCODONE HCL IR 5 MG TABLET PO SCH (17:15)
[2017-11-27] MEDS: CEFTRIAXONE SODIUM 1,000 MG in NORMAL SALINE 50 ML IV SCH (17:20)
[2017-11-27] MEDS: BACLOFEN 10 MG TABLET PO SCH ×2 (17:20→22:35)
[2017-11-27] MEDS: LORAZEPAM 1 MG TABLET PO SCH (22:33)
[2017-11-27] MEDS: GABAPENTIN 300 MG CAPSULE PO SCH (22:34)
[2017-11-27] MEDS: DULOXETINE HCL 30 MG CAPSULE.DR PO SCH (22:34)
[2017-11-27] MEDS: ATORVASTATIN CALCIUM 20 MG TABLET PO SCH (22:35)
[2017-11-27] MEDS: CYCLOSPORINE 0.05% OPH EMULSIO 0.4 ML DROPERETTE OU SCH (22:35)
[2017-11-27] MEDS ORDERED: DIPHENOXYLATE HCL/ATROP SULF 2.5-0.025 MG TABLET PO PRN (22:55)
[2017-11-27] MEDS: METOPROLOL TARTRATE 50 MG TABLET PO SCH (23:17)
[2017-11-28] MEDS: OXYCODONE HCL IR 5 MG TABLET PO SCH ×5 (00:21→23:07)
[2017-11-28] MEDS ORDERED: METRONIDAZOLE 500 MG TABLET PO ONE (00:42)
[2017-11-28] MEDS: BACLOFEN 10 MG TABLET PO SCH ×6 (04:10→21:44)
[2017-11-28] MEDS ORDERED: LANSOPRAZOLE 30 MG TAB.RAP.DR PO SCH (06:00)
[2017-11-28] MEDS: METRONIDAZOLE 500 MG TABLET PO SCH ×3 (06:40→21:44)
[2017-11-28] MEDS: LANSOPRAZOLE 30 MG TAB.RAP.DR PO SCH (06:42)
[2017-11-28 07:16] LABS: ABSOLUTE EOSINOPHILS # (AUTO) 0.1 10^3/uL (0.0-0.6); ABSOLUTE MONOCYTES (AUTO) 0.6 10^3/uL (0.1-1.4); ABSOLUTE NEUT (AUTO) 5.1 10^3/uL (1.7-8.2); BASOPHILS % (AUTO) 0.5 % (0-2); EOSINOPHILS % (AUTO) 1.8 % (0-6); HEMOGLOBIN 11.4 g/dL (12.0-15.5); LYMPHOCYTES % (AUTO) 25.4 % (13-45); MEAN CORPUSCULAR HEMOGLOBIN 30.4 pg (27.0-33.4); MEAN CORPUSCULAR HGB CONC 34.7 g/dL (32.0-36.0); MEAN CORPUSCULAR VOLUME 88 fl (80-97); MONOCYTES % (AUTO) 7.8 % (3-13); PLATELET COUNT 214 10^3/uL (150-450); RED BLOOD COUNT 3.76 10^6/uL (3.72-5.28); RED CELL DISTRIBUTION WIDTH 12.7 % (11.5-14.0); SEGMENTED NEUTROPHILS % (AUTO) 64.5 % (42-78); TOTAL CELLS COUNTED % (AUTO) 100 %; WHITE BLOOD COUNT 7.8 10^3/uL (4.0-10.5)
[2017-11-28 07:36] LABS: ALANINE AMINOTRANSFERASE 50 U/L (9-52); ALBUMIN 2.8 g/dL (3.5-5.0); ALKALINE PHOSPHATASE 131 U/L (38-126); ASPARTATE AMINO TRANSFERASE 44 U/L (14-36); BILIRUBIN,DIRECT 0.2 mg/dL (0.0-0.4); BILIRUBIN,TOTAL 0.4 mg/dL (0.2-1.3); TOTAL PROTEIN 4.7 g/dL (6.3-8.2)
[2017-11-28] MEDS: GABAPENTIN 300 MG CAPSULE PO SCH ×2 (09:41→21:45)
[2017-11-28] MEDS: LORAZEPAM 1 MG TABLET PO SCH ×2 (09:43→21:44)
[2017-11-28] MEDS: DULOXETINE HCL 30 MG CAPSULE.DR PO SCH ×2 (09:43→21:44)
[2017-11-28] MEDS: MEGESTROL ACETATE SUSP 400 MG/10 ML UDCUP PO SCH (09:44)
[2017-11-28] MEDS: METOPROLOL TARTRATE 50 MG TABLET PO SCH ×2 (09:44→21:45)
[2017-11-28] MEDS: CYCLOSPORINE 0.05% OPH EMULSIO 0.4 ML DROPERETTE OU SCH ×2 (09:45→21:44)
[2017-11-28] MEDS: NORMAL SALINE 1000 ML 1,000 ML IV PRN ×2 (09:45→17:56)
[2017-11-28] MEDS ORDERED: (PENDING PHARMACY ID) (Brexpiprazole [Rexulti] 0.5 MG) PO SCH (10:00)
[2017-11-28] MEDS ORDERED: MEGESTROL ACETATE PO SCH (10:00)
--- NOTE | 2017-11-28 17:30 | PDOC PROGRESS REPORT ---
Subjective Progress Note for:: 11/28/17 Subjective:: 62-year-old female who presented to the hospital with sepsis due to UTI and was started on Rocephin. Urine cultures are pending. No Complaints at present. Reason For Visit: SEPSIS/UTI Physical Exam Vital Signs: Temp Pulse Resp BP Pulse Ox 98.2 F 84 15 106/53 L 98 11/28/17 11:52 11/28/17 14:00 11/28/17 11:52 11/28/17 11:52 11/28/17 11:52 Intake & Output 11/27/17 11/28/17 11/29/17 06:59 06:59 06:59 Intake Total 625 3242 Balance 625 3242 Weight 66.6 kg 66.7 kg General appearance: PRESENT: no acute distress Head exam: PRESENT: atraumatic Eye exam: ABSENT: scleral icterus Respiratory exam: PRESENT: clear to auscultation kelsie, unlabored. ABSENT: accessory muscle use Cardiovascular exam: PRESENT: RRR GI/Abdominal exam: PRESENT: normal bowel sounds, soft. ABSENT: tenderness Rectal exam: PRESENT: deferred Results Laboratory Results: 11/28/17 06:10 11/28/17 11/28/17 06:10 06:10 WBC 7.8 RBC 3.76 Hgb 11.4 L Hct 33.0 L MCV 88 MCH 30.4 MCHC 34.7 RDW 12.7 Plt Count 214 Seg Neutrophils % 64.5 Lymphocytes % 25.4 Monocytes % 7.8 Eosinophils % 1.8 Basophils % 0.5 Absolute Neutrophils 5.1 Absolute Lymphocytes 2.0 Absolute Monocytes 0.6 Absolute Eosinophils 0.1 Absolute Basophils 0.0 Total Bilirubin 0.4 AST 44 H ALT 50 Alkaline Phosphatase 131 H Total Protein 4.7 L Albumin 2.8 L Impressions: Chest X-Ray 11/26/17 14:41 IMPRESSION: NO SIGNIFICANT RADIOGRAPHIC FINDING IN THE CHEST. Assessment & Plan - Diagnosis (1) UTI (urinary tract infection) Qualifiers: Encounter type: initial encounter Is this a current diagnosis for this admission?: Yes (2) Sepsis Qualifiers: Sepsis type: sepsis due to unspecified organism Qualified Code(s): A41.9 - Sepsis, unspecified organism Is this a current diagnosis for this admission?: Yes (3) Hypotension Is this a current diagnosis for this admission?: Yes (4) Syncope due to orthostatic hypotension Is this a current diagnosis for this admission?: Yes - Time Time Spent with patient: 35 or more minutes - Plan Summary Plan Summary: Continue IV fluids and antibiotics. Follow-up on cultures. Continue Flagyl for C. difficile.
[2017-11-28] MEDS: CEFTRIAXONE SODIUM 1,000 MG in NORMAL SALINE 50 ML IV SCH (17:55)
[2017-11-28] MEDS: LACTOBACILLUS ACIDOPHILUS 250 MG TAB PO SCH (17:55)
[2017-11-28] MEDS: ATORVASTATIN CALCIUM 20 MG TABLET PO SCH (21:44)
[2017-11-29] MEDS: BACLOFEN 10 MG TABLET PO SCH ×5 (01:09→17:25)
[2017-11-29] MEDS: NORMAL SALINE 1000 ML 1,000 ML IV PRN ×2 (03:01→09:01)
[2017-11-29] MEDS: LANSOPRAZOLE 30 MG TAB.RAP.DR PO SCH (06:05)
[2017-11-29] MEDS: OXYCODONE HCL IR 5 MG TABLET PO SCH ×3 (06:05→17:25)
[2017-11-29] MEDS: METRONIDAZOLE 500 MG TABLET PO SCH ×2 (06:05→14:57)
[2017-11-29 06:34] LABS: ABSOLUTE BASOPHILS # (AUTO) 0.1 10^3/uL (0.0-0.2); ABSOLUTE EOSINOPHILS # (AUTO) 0.1 10^3/uL (0.0-0.6); ABSOLUTE LYMPHOCYTES (AUTO) 2.4 10^3/uL (0.5-4.7); ABSOLUTE NEUT (AUTO) 8.3 10^3/uL (1.7-8.2); BASOPHILS % (AUTO) 1.2 % (0-2); EOSINOPHILS % (AUTO) 1.3 % (0-6); LYMPHOCYTES % (AUTO) 20.2 % (13-45); MEAN CORPUSCULAR HEMOGLOBIN 29.2 pg (27.0-33.4); MEAN CORPUSCULAR HGB CONC 33.4 g/dL (32.0-36.0); MEAN CORPUSCULAR VOLUME 87 fl (80-97); MONOCYTES % (AUTO) 8.1 % (3-13); PLATELET COUNT 281 10^3/uL (150-450); RED BLOOD COUNT 4.12 10^6/uL (3.72-5.28); RED CELL DISTRIBUTION WIDTH 12.8 % (11.5-14.0); SEGMENTED NEUTROPHILS % (AUTO) 69.2 % (42-78); TOTAL CELLS COUNTED % (AUTO) 100 %
[2017-11-29 06:57] LABS: ALANINE AMINOTRANSFERASE 44 U/L (9-52); ALBUMIN 2.9 g/dL (3.5-5.0); ALKALINE PHOSPHATASE 133 U/L (38-126); ANION GAP 8 (5-19); ASPARTATE AMINO TRANSFERASE 36 U/L (14-36); BLOOD UREA NITROGEN 4 mg/dL (7-20); CALCIUM 8.1 mg/dL (8.4-10.2); CARBON DIOXIDE 27 mmol/L (22-30); CHLORIDE 109 mmol/L (98-107); GLUCOSE 90 mg/dL (75-110); MAGNESIUM 1.6 mg/dL (1.6-2.3); POTASSIUM 3.5 mmol/L (3.6-5.0); SODIUM 144.1 mmol/L (137-145); TOTAL PROTEIN 5.2 g/dL (6.3-8.2)
[2017-11-29 07:02] LABS: BILIRUBIN,TOTAL < 0.1 mg/dL (0.2-1.3)
[2017-11-29] MEDS ORDERED: CEFEPIME 1 GM/D5W RTU 1 GM/50 ML RTUPB IV SCH (11:00)
[2017-11-29] MEDS: METOPROLOL TARTRATE 50 MG TABLET PO SCH (11:04)
[2017-11-29] MEDS: LORAZEPAM 1 MG TABLET PO SCH (11:04)
[2017-11-29] MEDS: GABAPENTIN 300 MG CAPSULE PO SCH (11:06)
[2017-11-29] MEDS: LACTOBACILLUS ACIDOPHILUS 250 MG TAB PO SCH ×2 (11:06→17:24)
[2017-11-29] MEDS: DULOXETINE HCL 30 MG CAPSULE.DR PO SCH (11:07)
[2017-11-29] MEDS: MEGESTROL ACETATE SUSP 400 MG/10 ML UDCUP PO SCH (11:09)
[2017-11-29] MEDS: CYCLOSPORINE 0.05% OPH EMULSIO 0.4 ML DROPERETTE OU SCH (11:09)
[2017-11-29 16:36] VITALS: BP 93/24
--- NOTE | 2017-11-30 21:04 | DISCHARGE SUMMARY E ---
Discharge Summary NAME: AIMEE BURDEN : 1955 AGE: 62Y ADMITTED: 11/26/2017 DISCHARGED: 11/29/2017 CODE STATUS: Full code. PRIMARY CARE PROVIDER: JULIETA Ashley DISCHARGE DIAGNOSES: 1. Clostridium difficile colitis. 2. Sepsis secondary to #1. 3. Hypertension. 4. Chronic obstructive pulmonary disease. 5. Diabetes mellitus type 2. 6. Gastroesophageal reflux disease. 7. Degenerative disk disease with osteoarthritis. 8. Attention deficit hyperactivity disorder. 9. Depression. 10. Opiate dependency continuous. 11. Benzodiazepine dependency continuous. 12. Abnormal cortisol level, possible adrenal insufficiency. DISCHARGE MEDICATIONS: 1. Flagyl 500 mg p.o. q.8 hours, 21 tablets with zero refills. 2. Align 4 mg p.o. b.i.d., 1 bottle zero refills. 3. Trazodone 100 mg p.o. q. hour of sleep p.r.n. 4. Belsomra 15 mg p.o. q. hour of sleep. 5. Crestor 10 mg p.o. q. hour of sleep. 6. Oxycodone 15 mg p.o. q.6 hours p.r.n. 7. Zofran 4 mg p.o. q.8 hours p.r.n. 8. Omeprazole 40 mg p.o. daily. 9. Lopressor 50 mg p.o. q.12 hours. 10. Megace ES 5 mL p.o. daily. 11. Ativan 1 mg p.o. q.12 hours. 12. Neurontin 600 mg p.o. q.12 hours. 13. Cymbalta 60 mg p.o. q.12 hours. 14. Restasis 1 drop in both eyes q.12 hours. 15. Rexulti 0.5 mg p.o. daily. 16. Baclofen 10 mg p.o. q.4 hours. ACTIVITY: As tolerated. DIET: As tolerated. Recommend yogurt with each tray. CONDITION: Good. LABORATORY DATA: Hematology obtained on 11/29/2017; WBC is 12.0, hemoglobin is 12.0, hematocrit 36.0, platelet count is 281,000. Coagulation obtained on 11/26/2017; D-dimer is 0.49. Chemistry obtained on 11/29/2017; sodium is 144, potassium 3.5, chloride is 109, carbon dioxide 27, BUN 4, creatinine is 0.52, glucose 90, lactic acid is 1, calcium is 8.0, magnesium is 1.6, bilirubin is 0.1, AST 36, ALT 44, alk-phos 133, total protein is 5.2, albumin 2.9. Cortisol is 3.75. Urinalysis obtained on 11/26/2017; color mayito, appearance turbid, pH is 5.0, specific gravity is 1.024, protein 100, glucose negative, ketones negative, small, nitrite positive, bilirubin negative, urobilinogen is 4, leukocyte esterase is large, WBC is greater than 182, RBC is 14; this was done by clean catch. Serology obtained on 11/27/2017; C. diff toxin is positive. MICROBIOLOGY DATA: Blood cultures obtained on 11/26/2017 reveal no growth. Urine culture obtained on 11/26/2017 reveals no growth. IMAGING STUDIES: Chest x-ray obtained on 11/26/2017 reveals no significant radiographic finding of the chest. PHYSICAL EXAMINATION: GENERAL: On examination the patient is a frail, chronically, thin 62-year-old female who is awake, alert. She oriented to person, place, time, and situation. She is verbal, conversational, ambulatory and does not appear to be distressed. VITAL SIGNS: Temperature is 98.5, pulse 83, respirations 18, blood pressure is 115/73, oxygen saturation is 98% on room air. SKIN: Warm and dry. No rash. She is not diaphoretic. HEENT: Pupils equal, round and reactive to light and accommodation. Conjunctivae are pink. No evidence of JVP. CARDIOVASCULAR SYSTEM: Heart is regular. There is no murmur or rub. CHEST: Clear, symmetrical, unlabored. ABDOMEN: Soft, nontender, nondistended. BACK: No CVA tenderness, no sacral edema. EXTREMITIES: No clubbing, cyanosis, or edema. PSYCHIATRIC: Odd affect. HISTORY OF PRESENT ILLNESS: The patient is a 62-year-old female with a past medical history of opiate and benzodiazepine dependency due to chronic pain and depression. The patient presented to the emergency department with a chief complaint of near syncope and diarrhea. The patient stated that she had had a long history of chronic obstructive pulmonary disease and felt that her near passing out may be concern. The patient gives a history of going to see her doctor last week complaining of her urine smelling like onions. However, she was told everything was okay. The patient stated that she got up to go to the bathroom the day of presentation, did not remember what happened. The patient states her was trying to put her in the shower and she felt as if she was going to pass out, but she did not. The patient also reports symptoms of having diarrhea for days and she had been having problem with low blood pressure and her antihypertensives were discontinued about several months ago. The patient also states she was recently, possibly diagnosed with Parkinson's disease although she is not on any medications for such. While in the emergency department the patient was found to be tachycardic and hypotensive. She was given a bolus. UA was concern for possible urinary tract infection, although the patient had no burning or pain with urination. The patient was referred to the hospitalist due to sepsis for possible UTI. HOSPITAL COURSE: C. diff was obtained which was found to be positive. The patient was covered with Flagyl as well as probiotic therapy with significant improvement in her diarrhea. The patient did not receive IV fluids after the first day and the patient was able to maintain her own hydration. The patient additionally was taught precautions for familial transmission. The patient's initial urine culture was positive for pseudomonas. The patient received 4 days of adequate coverage for this. However, the patient had no actual urinary symptoms, including burning, dysuria, or pain with this. It felt the patient's symptoms were only C. diff in nature. Therefore, no further antibiotics were given at discharge for such. The patient's blood pressure did improve. However, it is to be noted that the patient's morning cortisol sample found to be 3.75, which is a little on the low side. Therefore, the patient would consider being evaluated for possible adrenal insufficiency on an outpatient basis. At this time the patient is hemodynamically stable or discharge. The patient was instructed on the risk associated with chronic opiate use in conjunction with benzodiazepines. However, the patient states that she is on a treatment plan with her primary care provider and pain management and does not want to discuss discontinuing either agent. DISCHARGE PLAN: The patient is advised to follow with her primary care provider within 1 week for hospital follow up. Do recommended outpatient evaluation for adrenal insufficiency given the patient's random a.m. cortisol level was a little on the low side. The patient's blood pressures overall have improved but this could explain the patient's change from hypertension to hypotension as well. TIME SPENT: On this discharge including assessment and plan, physical examination, patient education, and review of records is 35 minutes. DICTATING PHYSICIAN: ADAN ORTIZ NP [id number] PHY#: [id number] ID: [id number] JOB#: [id number] ACCT: [id number] cc:Balaji MARADIAGA NP > MTDD
== END 2017-11-29 17:56 | disposition home or self-care (01) | DRG 872 ==
LOC: ER 14:17 → EH 19:52 → 3S 11-27
PROVIDERS: ADMIT Pediatrics; ATTEND Pediatrics
DX: A41.9 Sepsis, unspecified organism (principal); A04.72 Enterocolitis due to Clostridium difficile, not specified as recurrent; N39.0 Urinary tract infection, site not specified; E27.40 Unspecified adrenocortical insufficiency; F13.20 Sedative, hypnotic or anxiolytic dependence, uncomplicated; I95.1 Orthostatic hypotension; G20 Parkinson's disease; I10 Essential (primary) hypertension; J44.9 Chronic obstructive pulmonary disease, unspecified; K21.9 Gastro-esophageal reflux disease without esophagitis; F32.9 Major depressive disorder, single episode, unspecified; G89.29 Other chronic pain; B96.5 Pseudomonas (aeruginosa) (mallei) (pseudomallei) as the cause of diseases classified elsewhere; E78.5 Hyperlipidemia, unspecified; I25.10 Atherosclerotic heart disease of native coronary artery without angina pectoris; E11.9 Type 2 diabetes mellitus without complications; M19.90 Unspecified osteoarthritis, unspecified site; F90.9 Attention-deficit hyperactivity disorder, unspecified type; Z79.899 Other long term (current) drug therapy; Z79.891 Long term (current) use of opiate analgesic; Z90.49 Acquired absence of other specified parts of digestive tract; Z87.891 Personal history of nicotine dependence; Z82.49 Family history of ischemic heart disease and other diseases of the circulatory system; Z82.3 Family history of stroke; Z83.3 Family history of diabetes mellitus; Z88.2 Allergy status to sulfonamides; Z80.9 Family history of malignant neoplasm, unspecified
CPT/HCPCS: 36415; 71046; 80053; 80076; 81001; 82533; 83605; 83735; 85025; 85379; 87040; 87045; 87086; 87088; 87186; 87205; 87493; 96365; 99291; G8978-GP; G8979-GP; G8980-GP; G8987-GO; G8988-GO; G8989-GO; J0692; J0696; J3010; J3490; J7030; J7120; J8499; S0119

== ENCOUNTER 2019-09-27 10:10 | Emergency (ER) | payer MEDICARE, OTHER ==
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
[2019-09-27 12:22] VITALS: BP 92/46
== END 2019-09-27 12:21 | disposition home or self-care (01) ==
LOC: ER 10:10
DX: S00.83XA Contusion of other part of head, initial encounter (principal); R51 Headache; Y04.2XXA Assault by strike against or bumped into by another person, initial encounter; Z88.2 Allergy status to sulfonamides; I10 Essential (primary) hypertension
CPT/HCPCS: 70150; 99283

== ENCOUNTER → 2019-10-26 | Outpatient (CLI) | payer MEDICARE, OTHER ==
[2019-10-26 09:29] LABS: HEMATOCRIT 36.3 % (36.0-47.0); HEMOGLOBIN 12.5 g/dL (12.0-15.5); MEAN CORPUSCULAR HGB CONC 34.5 g/dL (32.0-36.0); MEAN CORPUSCULAR VOLUME 87 fl (80-97); PLATELET COUNT 221 10^3/uL (150-450); RED BLOOD COUNT 4.17 10^6/uL (3.72-5.28); WHITE BLOOD COUNT 5.5 10^3/uL (4.0-10.5)
[2019-10-26 10:03] LABS: ALBUMIN 4.7 g/dL (3.5-5.0); ALKALINE PHOSPHATASE 118 U/L (38-126); ANION GAP 9 (5-19); ASPARTATE AMINO TRANSFERASE 39 U/L (14-36); BILIRUBIN,DIRECT 0.3 mg/dL (0.0-0.4); BILIRUBIN,TOTAL 0.7 mg/dL (0.2-1.3); BLOOD UREA NITROGEN 15 mg/dL (7-20); CALCIUM 9.5 mg/dL (8.4-10.2); CARBON DIOXIDE 31 mmol/L (22-30); CHLORIDE 100 mmol/L (98-107); CHOLESTEROL 126.68 mg/dL (0-200); GLUCOSE 106 mg/dL (75-110); POTASSIUM 4.7 mmol/L (3.6-5.0); TOTAL PROTEIN 8.3 g/dL (6.3-8.2); TRIGLYCERIDES 104 mg/dL (<150)
[2019-10-26 10:14] LABS: DIRECT LDL 46 mg/dL (<100)
== END ==
LOC: OD 08:36
PROVIDERS: ATTEND Physician Assistant
DX: E78.00 Pure hypercholesterolemia, unspecified (principal); R00.0 Tachycardia, unspecified; I95.9 Hypotension, unspecified
CPT/HCPCS: 36415; 80048; 80061; 80076; 83735; 84443; 85027

== ENCOUNTER → 2019-11-10 | Outpatient (CLI) | payer MEDICARE, OTHER ==
--- NOTE | 2019-11-10 15:59 | RADIOLOGY REPORT (SQ) ---
EXAM DESCRIPTION: CHEST PA/LATERAL COMPLETED DATE/TIME: 11/10/2019 2:23 pm REASON FOR STUDY: OTHER CHEST PAIN; RADICULOPATHY, LUMBAR REGION COMPARISON: 11/26/2017 EXAM PARAMETERS: NUMBER OF VIEWS: two views TECHNIQUE: Digital Frontal and Lateral radiographic views of the chest acquired. RADIATION DOSE: NA LIMITATIONS: none FINDINGS: LUNGS AND PLEURA: No opacities, masses or pneumothorax. No pleural effusion. MEDIASTINUM AND HILAR STRUCTURES: No masses or contour abnormalities. HEART AND VASCULAR STRUCTURES: Heart normal size. No evidence for failure. BONES: No acute findings. HARDWARE: None in the chest. OTHER: No other significant finding. IMPRESSION: NO SIGNIFICANT RADIOGRAPHIC FINDING IN THE CHEST. TECHNICAL DOCUMENTATION: JOB ID: [id number] [employer]- All Rights Reserved Reading location - IP/workstation name: [email or web address]
--- NOTE | 2019-11-10 16:02 | RADIOLOGY REPORT (SQ) ---
EXAM DESCRIPTION: LUMBAR SPINE COMPLETE COMPLETED DATE/TIME: 11/10/2019 2:23 pm REASON FOR STUDY: OTHER CHEST PAIN; RADICULOPATHY, LUMBAR REGION R07.89 OTHER CHEST PAIN M54.16 RA DICULOPATHY, LUMBAR REGION COMPARISON: 08/17/2015. NUMBER OF VIEWS: Five views including obliques. TECHNIQUE: AP, lateral, oblique, and sacral radiographic images acquired of the lumbar spine. LIMITATIONS: None. FINDINGS: MINERALIZATION: Normal. SEGMENTATION: Normal. No transitional anatomy. ALIGNMENT: Normal. VERTEBRAE: Maintained height. No fracture or worrisome bone lesion. Postoperative changes at L5-S1, unchanged from prior. DISCS: Mild degenerative disc disease. POSTERIOR ELEMENTS: Pedicles and facets are intact. No pars defect or posterior arch defects. HARDWARE: None in the spine. PARASPINAL SOFT TISSUES: Normal. PELVIS: Intact as visualized. No fractures or worrisome bone lesions. SI joints intact. OTHER: No other significant finding. IMPRESSION: Postoperative changes L5-S1, stable. Mild degenerative disc disease. No acute fracture or dislocation of the lumbar spine. TECHNICAL DOCUMENTATION: JOB ID: [id number] [employer]- All Rights Reserved Reading location - IP/workstation name: [email or web address]
== END ==
LOC: OD 14:51
PROVIDERS: ATTEND Student in an Organized Health Care Education/Training Program
DX: M51.17 Intervertebral disc disorders with radiculopathy, lumbosacral region (principal); R07.89 Other chest pain
CPT/HCPCS: 71046; 72110